=== PATIENT | female | born 1960 | race Caucasian/White ===

== ENCOUNTER 2023-12-28 14:29 | Outpatient (CLI) | payer MEDICAID | END 2023-12-28 23:59 | disposition home or self-care (01) | LOC: MRI 14:29 | PROVIDERS: ATTEND Anesthesiology Pain Medicine | DX: S32.030A Wedge compression fracture of third lumbar vertebra, initial encounter for closed fracture (principal); M89.8X9 Other specified disorders of bone, unspecified site; M80.08XA Age-related osteoporosis with current pathological fracture, vertebra(e), initial encounter for fracture; F17.210 Nicotine dependence, cigarettes, uncomplicated; X58.XXXA Exposure to other specified factors, initial encounter; Y93.89 Activity, other specified; Y92.89 Other specified places as the place of occurrence of the external cause; Y99.8 Other external cause status | CPT/HCPCS: 70250 ==